=== PATIENT | female | born 1945 | race African-American/Black ===

== ENCOUNTER 2016-10-05 14:28 | Emergency (ER) | payer OTHER ==
[2016-10-05 14:52] VITALS: BP 192/81
--- NOTE | 2016-10-05 16:01 | Diag Imaging Result Document ---
PROCEDURE NAME: CHEST-2 VIEWS - 10/05/2016 CHEST 2 VIEWS: COMPARISON: 03/17/2016. FINDINGS: Heart size appears upper normal and stable. There is stable mild tortuosity of the thoracic aorta. There is nonspecific mild prominence of central markings which is stable. There is no consolidation, pleural effusion, or pneumothorax identified. IMPRESSION: No evidence of acute disease.
[2016-10-05] MEDS ORDERED: DUONEB (A & A) INH ONE ×2 (16:34)
--- NOTE | 2016-10-05 16:36 | PROVIDER DOCUMENTATION ---
HPI-Respiratory General - General Chief Complaint: General Adult Stated Complaint: general Time Seen by Provider: 10/05/16 16:29 Source: patient Allergies/Adverse Reactions: Patient Allergies Allergy/AdvReac Type Severity Reaction Status Date / Time No Known Allergies Allergy Verified 03/17/16 14:03 Home Medications: Amitriptyline HCl 50 mg PO QHS 06/26/12 Verapamil HCl [Verapamil ER] 240 mg PO BID 06/26/12 Ezetimibe/Simvastatin [Vytorin 10-80 mg Tablet] 10 mg PO HS 02/10/16 Glyburide/Metformin HCl [Glyburide-Metformin 5-500 mg] 1 each PO BID 02/10/16 Zolpidem [Ambien] 5 mg PO QHS 02/13/16 - History of Present Illness-Resp Nature of Presenting Problem: 71 y/o AAF c/o cough and congestion x 4 days, with increased difficulty breathing, runny nose and congestion. Denies abdominal pain, n/v/d. Subjective fevers yesterday, did not take temperature. Has a nebulizer at home, only used one time yesterday, but otherwise hasn't been. Former smoker, none currently. Denies sick contacts or pre-arrival treatment. Review of Systems - Adult - REVIEW OF SYSTEMS - ADULT Constitutional: reports: see HPI, chills, fever, fatique Eyes: reports: no symptoms reported. denies: discharge, blurred vision, double vision, eye pain Ears, Nose, Mouth & Throat: reports: no symptoms reported. denies: ear pain, nose pain, throat pain Cardiovascular: reports: no symptoms reported. denies: chest pain, palpitations Respiratory: reports: see HPI, cough, shortness of breath, wheezing Gastrointestinal: reports: no symptoms reported. denies: abdominal pain, diarrhea, nausea, vomiting Genitourinary: reports: no symptoms reported. denies: dysuria, discharge, frequency Musculoskeletal: reports: no symptoms reported. denies: muscle aches Integumentary: reports: no symptoms reported. denies: rash Neurological: reports: no symptoms reported. denies: headache/migraines Psychiatric: reports: no symptoms reported Endocrine: reports: no symptoms reported Hematologic/Lymphatic: reports: no symptoms reported Allergic/Immunologic: reports: no symptoms reported All Other Systems: Reviewed and Negative Past History - Adult - PAST MEDICAL HISTORY-ADULT Review of Records: reports: Old Records Reviewed, Nursing Assessment Review, Medications Reviewed, Social history reviewed & non-contributory. Major Childhood Illnesses: reports: denies history Cardiovascular: reports: arrhythmia, CAD, HTN, hyperlipidemia Respiratory: reports: bronchitis, COPD Gastrointestinal: reports: denies history Obstetrical/Gynecological: reports: denies history Genitourinary: reports: denies history Musculoskeletal: reports: arthritis Neurological: reports: denies history Endocrine/Immune: reports: Diabetes Diabetes Type: Type 2 Diabetes controlled by:: PO Meds Other Conditions: reports: denies history - PRIOR SURGERIES/PROCEDURES Surgical/Procedure History: reports: cardiac stent, other (cad) - IMMUNIZATION STATUS Childhood Immunizations: UTD Flu Vaccine: UTD - FAMILY HISTORY Family History: reviewed, not pertinent - SOCIAL HISTORY Smoking: quit greater than 1 year Substance Use: none/never Alcohol Use Frequency: never Physical Exam-General - PHYSICAL EXAM-ADULT Initial Vital Signs Reviewed: Yes - CONSTITUTIONAL General Appearance: appears well, alert, no apparent distress - EYES Eyes: PERRL/EOMI, pink conjunctivae - HEAD, EARS, NOSE, MOUTH & THROAT HENMT: normocephalic/atraumatic, moist mucous membranes, normal ENT inspection, TMs normal, pharynx normal. negative: pharyngeal erythema, tonsillar exudate, TM abnormal - NECK Neck: non-tender, full range of motion, supple, normal inspection. negative: lymphadenopathy - RESPIRATORY Respiratory: chest non-tender, no pleuratic chest pain, no respiratory distress , no accessory muscle use, wheezing (generalized). negative: respiratory distress, decreased breath sounds, accessory muscle use, crackles, rales, rhonchi - CARDIOVASCULAR Cardiovascular: normal peripheral pulses, regular rate, rhythm, no edema - LYMPHATIC Lymphatic: no adenopathy - MUSCULOSKELETAL Extremity: normal gait - SKIN Integumentary: normal color, normal turgor, warm/dry - NEUROLOGIC Neurologic: grossly normal, no motor/sensory deficits - PSYCHIATRIC Psych/Mental Status: normal mood/affect, normal thought content, normal thought process, oriented x 3 Progress - PLAN OF CARE/RESULTS Progress/Plan/Lab Results: Vital Signs Temp Pulse Resp BP Pulse Ox 10/05/16 14:49 98.2 F 86 19 192/81 97 No Known Allergies Allergy (Verified 03/17/16 14:03) Amitriptyline HCl 50 mg PO QHS 06/26/12 Verapamil HCl [Verapamil ER] 240 mg PO BID 06/26/12 Ezetimibe/Simvastatin [Vytorin 10-80 mg Tablet] 10 mg PO HS 02/10/16 Glyburide/Metformin HCl [Glyburide-Metformin 5-500 mg] 1 each PO BID 02/10/16 Zolpidem [Ambien] 5 mg PO QHS 02/13/16 Azithromycin [Zithromax Z-Otoniel] 250 mg PO DIRECTED #1 pkg 03/17/16 Azithromycin [Zithromax Z-Otoniel] 250 mg PO DIRECTED #1 pkg 10/05/16 Orders Category Date Time Status CHEST-2 VIEWS [RAD] Stat Exams 10/05/16 14:53 Completed INFLUENZA SCREEN A/B Stat Lab 10/05/16 14:56 Completed Albuterol 2.5MG/Ipratrop 0.5MG [Duoneb (A & A)] Med 10/05/16 16:34 Discontinued 3 ml INH NOW ONE Albuterol 2.5MG/Ipratrop 0.5MG [Duoneb (A & A)] Med 10/05/16 16:34 Discontinued 3 ml INH NOW ONE Clonidine [Catapres] Med 10/05/16 16:39 Discontinued 0.2 mg PO NOW ONE Aerosol Treatments Routine Oth 10/05/16 16:34 Active Aerosol Treatments Routine Oth 10/05/16 16:34 Active Aerosol Treatments Stat Oth 10/05/16 16:34 Active Aerosol Treatments Stat Oth 10/05/16 16:34 Active - XRAY 1 XRAY: Bilateral XRAY Study: Chest Impression: Normal (NAD per radiology) Departure - Departure Time of Disposition Order: 16:35 DIAGNOSIS: URI (upper respiratory infection) Qualifiers: URI type: unspecified viral URI Qualified Code(s): J06.9 - Acute upper respiratory infection, unspecified; B97.89 - Other viral agents as the cause of diseases classified elsewhere HTN (hypertension) Qualifiers: Hypertension type: essential hypertension Qualified Code(s): I10 - Essential ( primary) hypertension Disposition: HOME 01 Certified Medical Emergency: Emergent Condition: Stable Additional Instructions: follow up with your primary care physician in one week. ED Follow Up Instructions: You have been treated by a care provider in the Emergency Department. These instructions are being provided to you so you can have an understanding of how to care for yourself upon discharge. Upon discharge from the Emergency Department, you are responsible for making arrangements for follow-up care by a physician of your choice. Take all prescribed medications as directed. Return to the Emergency Department immediately for any new or worsening symptoms. You may call the Physician Referral phone number at [phone] to obtain a list of Physicians who are taking new patients. Prescriptions: Azithromycin [Zithromax Z-Otoniel] 250 mg PO DIRECTED #1 pkg Referrals: Marquis Martinez MD [Primary Care Provider] - Attestation - Physician/ Mid-level Attestation Patient care was provided by Mid-level provider (PHYSICIAN ALLERGIST IMMUNOLOGIST/PA):: Yes Mid-level provider:: Nette Doyle Mid-level documentation review:: The Mid-level provider documentation, treatment plan and medical decision making was reviewed by the physician who agrees with all treatment and medical decision making by the MLP.
[2016-10-05] MEDS ORDERED: CATAPRES PO ONE (16:39)
[2016-10-05] MEDS ORDERED: CATAPRES ONE (16:44)
== END 2016-10-05 17:12 | disposition home or self-care (01) ==
LOC: ED 14:28
DX: J06.9 Acute upper respiratory infection, unspecified (principal); B97.89 Other viral agents as the cause of diseases classified elsewhere; I10 Essential (primary) hypertension; R05 Cough; R09.81 Nasal congestion; R09.89 Other specified symptoms and signs involving the circulatory and respiratory systems; R50.9 Fever, unspecified; R53.83 Other fatigue; Z79.899 Other long term (current) drug therapy; R06.02 Shortness of breath; R06.2 Wheezing; I25.10 Atherosclerotic heart disease of native coronary artery without angina pectoris; E78.5 Hyperlipidemia, unspecified; J44.9 Chronic obstructive pulmonary disease, unspecified; M19.90 Unspecified osteoarthritis, unspecified site; E11.9 Type 2 diabetes mellitus without complications; Z95.5 Presence of coronary angioplasty implant and graft; Z87.891 Personal history of nicotine dependence
CPT/HCPCS: 71020; 87804; 94640; 94761; 99283